=== PATIENT | male | born 1940 | race Hispanic/Latino ===

== ENCOUNTER 2021-06-04 06:33 | Day surgery (SDC) | payer MEDICARE ==
[2021-06-01 13:34] LABS: BASOPHILS % (AUTO) 0.5 % (0.0-5.0); EOSINOPHILS % (AUTO) 1.2 % (0.0-8.0); LYMPHOCYTES % (AUTO) 13.3 % (21.0-51.0); MEAN CORPUSCULAR HEMOGLOBIN 31.3 pg (27.0-33.0); MEAN CORPUSCULAR HGB CONC 33.2 g/dL (32.0-36.0); MEAN CORPUSCULAR VOLUME 94.2 fL (79-99); MONOCYTES % (AUTO) 10.9 % (3.0-13.0); NEUTROPHILS % (AUTO) 73.6 % (40.0-77.0); PLATELET COUNT (AUTO) 255 K/uL (130-400); RED BLOOD CELL COUNT(AUTO) 4.67 MIL/uL (4.50-6.20); RED CELL DISTRIBUTION WIDTH 13.9 % (11.0-15.5); WHITE BLOOD COUNT (AUTO) 10.8 K/uL (4.8-10.8)
[2021-06-01 13:41] LABS: INR 1.06 (0.85-1.15); PROTHROMBIN TIME 11.5 SEC (9.6-11.6)
[2021-06-01 13:42] LABS: CREATININE 1.4 mg/dL (0.5-1.5); POTASSIUM 4.2 mmol/L (3.5-5.1)
[2021-06-01 13:43] LABS: PARTIAL THROMBOPLASTIN TIME 26.2 SEC (26.3-35.5)
[2021-06-03 11:01] VITALS: BP 139/72
[2021-06-04] VITALS (15 sets, daily range): BP systolic 103–146; BP diastolic 50–64
[~2021-06-04 06:33] MED LIST: AEC81 PO; ASCO100T12 PO; ATOR10TA69 PO; CYAN1TAB44 PO; DONE10TA43 PO; FOLI1 PO; MEMA5TAB42 PO; MVIT PO; SERT-438 PO; VITAD50000 PO
[2021-06-04] MEDS ORDERED: SUCCINYLCHOLINE 200MG/10ML SYR IV ONE (06:34)
[2021-06-04] MEDS ORDERED: LACTATED RINGERS 1000ML 1,000 ML IV ONE (07:59)
[2021-06-04] MEDS ORDERED: PROPOFOL 10 MG/ML 20ML VIAL IV ONE (08:36)
[2021-06-04] MEDS ORDERED: LIDOCAINE PF 100MG/5ML (2%) SYRINGE 5ML ONE (08:36)
[2021-06-04] MEDS ORDERED: ONDANSETRON 4MG INJ ONE (08:36)
[2021-06-04] MEDS ORDERED: LIDOCAINE 1%-EPI 1:100,000 20 ML VIAL IJ ONE (08:36)
[2021-06-04] MEDS ORDERED: FENTANYL CITRATE PF 50 MCG/1 ML 2ML VIAL ONE ×2 (08:37)
[2021-06-04] MEDS ORDERED: ROCURONIUM 10MG/1ML SYR 10 MG/ML ML ONE (08:37)
[2021-06-04] MEDS ORDERED: ESMOLOL HCL 10 MG/ML 10 ML VIAL ONE (08:45)
[2021-06-04] MEDS ORDERED: EPINEPHRINE 1 MG/ML 30ML VIAL IJ ONE (09:11)
[2021-06-04] MEDS ORDERED: MORPHINE 2 MG SYG ONE (09:58)
== END 2021-06-04 11:08 | disposition home or self-care (01) ==
LOC: DAH 06:33
PROVIDERS: ATTEND Otolaryngology
DX: R49.0 Dysphonia (principal); J38.3 Other diseases of vocal cords; Z20.822 Contact with and (suspected) exposure to COVID-19; Z79.01 Long term (current) use of anticoagulants; Z79.82 Long term (current) use of aspirin; Z79.899 Other long term (current) drug therapy; Z98.890 Other specified postprocedural states
CPT/HCPCS: 31536; 36415; 80048; 85025; 85610; 85730; 87635; 88305; A4215; A4221; A4222; A4223; A4663; A4930; C9803; J0171; J0330; J2001; J2405; J2704; J3010 ×2; J3490; J7120; 93005